=== PATIENT | female | born 2000 | race Two or more races ===

== ENCOUNTER 2023-02-24 20:00 | Emergency (ER) | payer OTHER ==
[2023-02-24] MEDS ORDERED: Dexamethasone 10 MG/ML VIAL ONE (21:28)
[2023-02-24] MEDS ORDERED: Ketorolac Tromethamine 30 MG/ML VIAL ONE (21:28)
[2023-02-24] MEDS ORDERED: Ondansetron ODT 4 MG TAB ONE (21:29)
[2023-02-24 22:09] LABS: SARS-CoV-2 NAA Rapid Test Not Detected (NotDetected)
== END 2023-02-24 23:11 | disposition home or self-care (01) ==
LOC: CSHERS 20:00
DX: B27.90 Infectious mononucleosis, unspecified without complication (principal); Z20.822 Contact with and (suspected) exposure to COVID-19
CPT/HCPCS: 96372; 99284; J1100; J1885; Q0162